=== PATIENT | female | born 1940 | race Caucasian/White ===

== ENCOUNTER 2017-08-23 09:34 | Outpatient (CLI) | payer MEDICARE, BC | END 2017-08-23 09:35 | disposition home or self-care (01) | LOC: CTENTCT 09:34 | PROVIDERS: ATTEND Otolaryngology Plastic Surgery within the Head & Neck | DX: J32.9 Chronic sinusitis, unspecified (principal) | CPT/HCPCS: 70486 ==

== ENCOUNTER 2017-09-01 08:50 | Day surgery (SDC) | payer MEDICARE, BC ==
[2017-08-31 14:12] VITALS: BMI 27.4
[2017-09-01] MEDS ORDERED: Oxymetazoline HCl 0.05% ( 15 ML ) ONE ×2 (09:32→11:06)
[2017-09-01 10:09] LABS: Hematocrit 43.6 % (36.0-47.0)
[2017-09-01 10:28] LABS: Anion Gap 14 mmol/L (10-20); BUN (Urea Nitrogen) 14 mg/dL (9.8-20.1); Calc. Creatinine Clearance 79 mL/min (70-130); Calcium 10.3 mg/dL (7.8-10.44); Carbon Dioxide 26 mmol/L (23-31); Chloride 106 mmol/L (98-107); Estimated GFR-MDRD 80
[2017-09-01] MEDS ORDERED: Fentanyl 100 MCG/2 ML VIAL ONE (11:05)
[2017-09-01] MEDS ORDERED: Glycopyrrolate 0.2 MG/ML 5 ML SYRINGE ONE (11:26)
[2017-09-01] MEDS ORDERED: Lidocaine 2% PF 10 ML AMP (For Epidural Use) ONE (11:26)
[2017-09-01] MEDS ORDERED: Dexamethasone 20 MG/5 ML VIAL ONE (11:26)
[2017-09-01] MEDS ORDERED: PHENYLEPHRINE-NS 100 MCG/ML 10 ML SYRINGE ONE (11:26)
[2017-09-01] MEDS ORDERED: Ondansetron HCl/PF 4 MG/2 ML Vial ONE (11:26)
[2017-09-01] MEDS ORDERED: Propofol 200 MG/20 ML VIAL ONE (11:26)
[2017-09-01] MEDS ORDERED: Promethazine HCl 25 MG/ML VIAL ONE (13:15)
[2017-09-01] MEDS ORDERED: Morphine 2 MG/ML SYRINGE ONE (13:16)
--- NOTE | 2017-09-02 09:08 | OP ---
DATE OF PROCEDURE: 09/01/2017 PREOPERATIVE DIAGNOSES: 1. Allergic fungal sinusitis. 2. Chronic rhinosinusitis. 3. Left middle turbinate nedra bullosa. 4. Bilateral inferior turbinate hypertrophy. POSTOPERATIVE DIAGNOSES: 1. Allergic fungal sinusitis. 2. Chronic rhinosinusitis. 3. Left middle turbinate nedra bullosa. 4. Bilateral inferior turbinate hypertrophy. PROCEDURES: 1. Bilateral endoscopic sinus surgery, total ethmoidectomies. 2. Bilateral endoscopic sinus surgery, maxillary antrostomies. 3. Endoscopic resection of left middle turbinate nedra bullosa. 4. Bilateral inferior turbinate submucosal resection. SURGEON: Dr. Mandeep Bacon. ESTIMATED BLOOD LOSS: 50 mL COMPLICATIONS: None. ANESTHESIA: GETA. PROCEDURE: The patient was taken to the operating room and placed supine on the table. General end otracheal anesthesia was obtained by the Anesthesia staff. Tube was secured in the left lower lip. The patient was placed in the beach chair position and was prepped and draped for standard nasal pr ocedure. Following this, 1% lidocaine with 1:100,000 epinephrine was injected into the nasal cavity in the inferior turbinates, middle turbinates, lateral nasal wall and the 0 degree endoscope was us ed to assist with the procedure. The Alkol elevator was used to medially fracture the middle turbin ates bilaterally. Following this, the uncinate process was identified and was anteriorly fractured using the ball-ended probe. The uncinate process was then removed using a microdebrider and upbitin g Blakesley forceps. On the left side, a large nedra bullosa of the left middle turbinate was then incised vertically with a sickle knife. The lateral portion of the nedra bullosa was then removed using a straight Blakesley forceps. Following this, the natural maxillary ostia was gently palpate d and identified with a ball-ended probe and then widened using the microdebrider and straight Brady sley forceps. On this right side, copious amounts of nasal polyps and allergic fungal debris were r emoved from the right maxillary sinus. This infected area was then extended into the ethmoidal bull a on this right side. The ethmoidal bulla was identified and was punctured on its medial and inferi or aspect bilaterally and was removed using the microdebrider. Following this, the grand lamella wa s identified bilaterally and was punctured into the posterior ethmoidal cells. Working from posteri or to anterior, the ethmoidal cells were opened in a mucosal-sparing technique bilaterally. Followi ng this, the inferior turbinates were then punctured on the anterior and inferior aspect and submuco stephanie resection of the inferior turbinates was performed. Nasal cavity was then irrigated. MeroPacks were placed. The patient tolerated the procedure well.
--- NOTE | 2017-09-03 15:58 | EKG ---
Test Reason : PREOP Blood Pressure : / mmHG Vent. Rate : 059 BPM Atrial Rate : 059 BPM P-R Int : 216 ms QRS Dur : 086 ms QT Int : 406 ms P-R-T Axes : 056 007 030 degrees QTc Int : 401 ms Sinus bradycardia with 1st degree A-V block Otherwise normal ECG No previous ECGs available Confirmed by DR. Fab ALMARAZ ([id number]) on 09/03/2017 3:58:19 PM Referred By: PEREZ Confirmed By:DR. Fab ALMARAZ
== END 2017-09-01 14:05 | disposition home or self-care (01) ==
LOC: SDC 08:50
PROVIDERS: ATTEND Otolaryngology Plastic Surgery within the Head & Neck
PROC: 099R8ZZ Drainage of Left Maxillary Sinus, Via Natural or Artificial Opening Endoscopic (ICD-10-PCS; principal; 2017-09-01)
PROC: 099Q8ZZ Drainage of Right Maxillary Sinus, Via Natural or Artificial Opening Endoscopic (ICD-10-PCS; 2017-09-01)
PROC: 09TL8ZZ Resection of Nasal Turbinate, Via Natural or Artificial Opening Endoscopic (ICD-10-PCS; 2017-09-01)
PROC: 09TL7ZZ Resection of Nasal Turbinate, Via Natural or Artificial Opening (ICD-10-PCS; 2017-09-01)
DX: J32.9 Chronic sinusitis, unspecified (principal); J30.89 Other allergic rhinitis; J34.9 Unspecified disorder of nose and nasal sinuses; J34.3 Hypertrophy of nasal turbinates; I10 Essential (primary) hypertension; E78.00 Pure hypercholesterolemia, unspecified; E89.0 Postprocedural hypothyroidism; Z79.82 Long term (current) use of aspirin; Z79.899 Other long term (current) drug therapy; Z88.2 Allergy status to sulfonamides; Z96.1 Presence of intraocular lens; Z98.890 Other specified postprocedural states; Z87.891 Personal history of nicotine dependence; Z87.81 Personal history of (healed) traumatic fracture
CPT/HCPCS: 80048; 85014; 85018; 87070; 87102; 87205; 87206; 93005; 93010; 96374; 96375; J1100; J2001; J2270; J2405; J2550; J2704; J3010

== ENCOUNTER 2018-02-15 21:12 | Emergency (ER) | payer MEDICARE, BC ==
[2018-02-16] MEDS ORDERED: Ketorolac Tromethamine 30 MG/ML VIAL ONE (00:09)
[2018-02-16] MEDS ORDERED: Water For Inject, Bacteriostat 30 ML ONE (00:09)
[2018-02-16] MEDS ORDERED: methylPREDNISolone Sod Succ/PF 125 MG/2 ML VIAL ONE (00:09)
== END 2018-02-16 00:35 | disposition home or self-care (01) ==
LOC: ERS 21:12
DX: S39.012A Strain of muscle, fascia and tendon of lower back, initial encounter (principal); E03.9 Hypothyroidism, unspecified; I10 Essential (primary) hypertension; Z79.899 Other long term (current) drug therapy; X58.XXXA Exposure to other specified factors, initial encounter
CPT/HCPCS: 96372; J1885; J2930

== ENCOUNTER 2019-02-04 16:22 | Inpatient (IN) | payer MEDICARE, BC ==
[2019-02-04] MEDS ORDERED: Morphine 4 MG/ML VIAL ONE ×2 (17:13→19:21)
--- NOTE | 2019-02-04 17:46 | RAD ---
FXR Hip Lt 2-3 View: 02/04/2019 5:10 PM CLINICAL INDICATION: Injury, pain COMPARISON: None. FINDINGS: Fracture:Subcapital proximal left femoral fracture with shortening of the femoral neck and associated angulation Arthropathy:Mild arthropathy. Incidental findings:Calcific density overlies the left hemipelvis IMPRESSION: 1. Subcapital, impacted and angulated proximal left femoral fracture. Orthopedic consultation is brandi mmended.
--- NOTE | 2019-02-04 17:47 | RAD ---
FXR Pelvis AP STANDARD: 02/04/2019 5:10 PM CLINICAL INDICATION: Fall with pain and injury COMPARISON: None. FINDINGS: Fracture:Subcapital fracture of proximal left femur is present Arthropathy:Mild arthropathy. Incidental findings:Calcifications overlie the pelvis IMPRESSION: 1. Subcapital, proximal left femoral fracture.
--- NOTE | 2019-02-04 17:48 | RAD ---
FXR Knee Lt 3 View: 02/04/2019 5:10 PM CLINICAL INDICATION: Injury, pain COMPARISON: None. FINDINGS: Fracture:No fracture. Arthropathy:Mild arthropathy. Incidental findings:None of significance. Lateral view is rotated, limiting assessment. IMPRESSION: 1. No acute osseous abnormality.
--- NOTE | 2019-02-04 17:50 | RAD ---
FXR Femur Lt 2 View STANDARD: 02/04/2019 5:09 PM CLINICAL INDICATION: Injury, pain COMPARISON: None. FINDINGS: Fracture:Subcapital, proximal left femoral fracture is present Arthropathy:Mild arthropathy. Incidental findings:None of significance. IMPRESSION: 1. Subcapital fracture of the proximal left femur.
[2019-02-04 18:13] LABS: #Basophils 0.1 thou/uL (0.0-0.2); #Eosinphils 0.3 thou/uL (0.0-0.7); #Lymphocytes 1.3 thou/uL (1.20-3.40); #Monocytes 0.6 thou/uL (0.11-0.59); #Neutrophils 8.6 thou/uL (1.40-6.50); %Basophils 0.7 % (0.0-1.0); %Eosinophils 3.1 % (0.0-10.0); %Lymphocytes 11.8 % (21.0-51.0); %Monocytes 5.6 % (0.0-10.0); %Neutrophils 78.7 % (42.0-75.0); Mean Corpuscular Hemoglobin 30.5 pg (27.0-31.0); Mean Corpuscular Volume 92.6 fL (78.0-98.0); Platelet Count 211 thou/uL (130-400); RBC Distribution Width 12.5 % (11.5-14.5); Red Blood Cell (RBC) Count 4.57 mill/uL (4.20-5.40); White Blood Cell (WBC) Count 10.9 thou/uL (4.8-10.8)
[2019-02-04 18:20] LABS: Prothrombin Time 13.1 SEC (12.0-14.7)
[2019-02-04 18:21] LABS: PTT 30.4 SEC (22.9-36.1)
[2019-02-04 18:44] LABS: ALT (SGPT) 12 U/L (8-55); AST (SGOT) 16 U/L (5-34); Albumin 3.9 g/dL (3.4-4.8); Alkaline Phosphatase 101 U/L (40-150); Anion Gap 10 mmol/L (10-20); BUN (Urea Nitrogen) 19 mg/dL (9.8-20.1); Bilirubin, Total 0.5 mg/dL (0.2-1.2); Calc. Creatinine Clearance 0 mL/min (70-130); Calcium 10.3 mg/dL (7.8-10.44); Carbon Dioxide 27 mmol/L (23-31); Chloride 106 mmol/L (98-107); Estimated GFR-MDRD 73; Globulin 2.4 g/dL (2.4-3.5); Glucose 126 mg/dL (83-110); Potassium 4.2 mmol/L (3.5-5.1); Protein, Total 6.3 g/dL (6.0-8.3); Sodium 139 mmol/L (136-145)
--- NOTE | 2019-02-04 20:25 | HP ---
CONSULTATION: Orthopedics, Dr. Winkler. HISTORY OF PRESENT ILLNESS: The patient is a 78-year-old woman, who was at home when she slipped on a rug and landed on her garage floor. She denied any loss of consciousness, though she did hit her head on the back of the floor. She had immediate pain to her left hip area. She was brought to the emergency department, underwent evaluation and examination, was noted to have a left femoral neck fracture. At which time, we were asked to evaluate the patient for admission and obtain Orthopedic consultation. ALLERGIES: SULFA. CURRENT MEDICATIONS: 1. Tolterodine. 2. Lisinopril. 3. Hydralazine. 4. Pravastatin. 5. Synthroid. 6. Propranolol. 7. Potassium. PAST MEDICAL HISTORY: 1. Hypothyroidism. 2. Hyperlipidemia. 3. Hypertension. PAST SURGICAL HISTORY: 1. Thyroidectomy. 2. Dental implants. 3. Left elbow irrigation and debridement. 4. Bilateral breast biopsies. 5. Tonsillectomy. SOCIAL HISTORY: The patient denies drug, tobacco, or alcohol use. Lives independently at home alone. REVIEW OF SYSTEMS: A 10-point review of systems is negative as otherwise stated. PHYSICAL EXAMINATION: VITAL SIGNS: Blood pressure 166/75, heart rate 78, respirations 18, oxygen saturation is 98% on room air, and temperature is 98.5. GENERAL: The patient is resting comfortably in bed. She is awake, alert, and oriented x3. [place] Coma Scale is 15. HEENT: Head is normocephalic. There is a small contusion in the occiput of her scalp, but otherwise unremarkable. Eyes; extraocular motion intact. PERRLA bilaterally. Ears are atraumatic without discharge. Nose, atraumatic without discharge. Oropharynx is clear. NECK: Nontender. Trachea is midline. No JVD. CHEST: Clear to auscultation with good inspiratory and expiratory effort. HEART: Regular rate and rhythm. ABDOMEN: Soft, flat, nontender with active bowel sounds. Pelvis is stable with tenderness to the left hip consistent with her fracture. EXTREMITIES: Neurovascularly intact x4. BACK: Atraumatic and nontender. LABORATORY FINDINGS: White blood cell count 10.9, hemoglobin 14.0, hematocrit 42.3, platelets 211. Sodium 139, potassium 4.2, chloride 106, CO2 of 27, BUN 19, creatinine 0.76, glucose 126. LFTs are unremarkable. PT 13, INR 1.0, PTT 31. RADIOGRAPHIC REPORTS: AP pelvis shows subcapital proximal left femoral fracture ; left hip shows a subcapital, impacted and angulated proximal left femur fracture ; left femur again shows the subcapital proximal femur fracture; left knee shows no acute osseous abnormality. ASSESSMENT AND PLAN: 1. Status post ground level fall. 2. Scalp contusion. 3. Left subcapital proximal femur fracture. 4. Acute pain secondary to above. 5. History of hypertension. 6. History of hypothyroidism. 7. History of hyperlipidemia. PLAN: Plan will be to admit the patient to the surgical floor. She will have pain management, pulmonary toilet, gastritis, mechanical VTE prophylaxis. After midnight, we will make the patient n.p.o. Postoperatively, we will plan on giving her diet, p.o. medications for pain. Resume her home medications and begin physical and occupational therapy. The patient was evaluated in the emergency department with Dr. Winkler and he explained the planned surgical procedure. The evaluation, examination, laboratory, and radiographic findings will be discussed with Dr. Nettles after this dictation. Job ID: [id number] MTDD
[2019-02-04] MEDS ORDERED: CEFAZOLIN 2 GM in Premix Bag 1 BAG IVPB SCH (20:30)
[2019-02-04] MEDS ORDERED: Morphine 4 MG/ML VIAL SLOW IVP PRN (21:33)
[2019-02-04] MEDS ORDERED: Dextrose 5% in Water 1,000 ML IV PRN (21:33)
[2019-02-04] MEDS ORDERED: hydrALAZINE 20 MG/ML VIAL SLOW IVP PRN (21:33)
[2019-02-04] MEDS ORDERED: Morphine 2 MG/ML SYRINGE SLOW IVP PRN (21:33)
[2019-02-04] MEDS ORDERED: Ondansetron PF 4 MG/2 ML Vial IVP PRN (21:33)
[2019-02-04] MEDS ORDERED: Ketorolac Tromethamine 30 MG/ML VIAL IVP SCH (21:33)
[2019-02-04] MEDS ORDERED: Ondansetron ODT 4 MG TAB PO PRN (21:33)
[2019-02-04] MEDS ORDERED: Dextrose 50% Abboject 50 ML SYRINGE SLOW IVP PRN (21:33)
--- NOTE | 2019-02-04 21:34 | CON ---
DATE OF CONSULTATION: 02/04/2019 BRIEF HISTORY OF PRESENT ILLNESS: The patient is a pleasant 78-year-old lady, who was examined in the emergency room at [facility] following a ground level fall at home when she slipped on a rug and landed on her left side. She reports immediate left groin pain and inability to ambulate. Upon evaluation in the Emergency Department, she was found to have left groin pain, the leg that was mildly shortened and externally rotated at the hip and x-ray confirming a displaced subcapital femoral neck fracture. As such, the patient now admitted to the Trauma Service and Orthopedic consultation requested. PAST MEDICAL HISTORY: Remarkable for hypertension, hypothyroidism, and hyperlipidemia. PAST SURGICAL HISTORY: Includes breast biopsies, thyroidectomy, tonsillectomy, and left elbow irrigation and debridement. MEDICATIONS: Include; 1. Propranolol. 2. Synthroid. 3. Pravastatin. 4. Hydralazine. 5. Lisinopril. 6. Potassium. ALLERGIES: TO SULFA DRUGS. SOCIAL HISTORY: The patient denies drug, tobacco, or alcohol use. She lives alone in a private residence. FAMILY HISTORY: Noncontributory. REVIEW OF SYSTEMS: The patient denies recent fevers, chills, or sweats. Denies chest pain or shortness of breath. Denies numbness or tingling in the lower extremity. PHYSICAL EXAMINATION: VITAL SIGNS: Temperature 98.5, heart rate of 78, respiratory rate of 18, blood pressure 166/75, and O2 saturations are 98% on room air. GENERAL: The patient is found to be awake, alert, and oriented, found to be a very pleasant and bright, 78-year-old lady. HEENT: Atraumatic and normocephalic, except for very small contusion at her scalp. NECK: Nontender and supple. HEART: Shows a regular rate and rhythm without murmur. LUNGS: Clear to auscultation bilaterally with good breath sounds and no chest pain. ABDOMEN: Flat and nontender. PELVIS: Stable to compression. EXTREMITIES: Remarkable for bilateral upper extremities that are atraumatic. A right lower extremity is also atraumatic. A left lower extremity remarkable for pain in the groin with a leg that is slightly shortened and externally rotated at the hip. The knee ankle and foot appear atraumatic. She is wiggling her toes normally. Thigh and lower leg compartments are soft. LABORATORY DATA: White count of 10.9, hematocrit of 42.3, and 211,000 platelets. INR of 1.0. IMAGING DATA: X-rays, AP pelvis as well as 2-view left hip remarkable for a varus angulated impacted left femoral neck fracture. ASSESSMENT AND PLAN: The patient is a pleasant 78-year-old lady status post ground level fall sustaining a left femoral neck fracture with displacement. This evening, I discussed with the patient treatment options including nonsurgical management, attempted closed reduction and pinning, hemiarthroplasty and total hip arthroplasty. Given the patient's level of activity as well as functional demands, I believe that a hemiarthroplasty will allow her to pursue all of her normal activities of daily living while providing a hip that will hopefully last for the rest of her days. Today, we also briefly discussed risks and benefits for the surgery. Risks include, but are not limited to bleeding, infection, nerve injury, deep venous thrombosis, pulmonary embolism, dislocation, loss of limb or life. The patient appears to understand and does wish to proceed. We will make her n.p.o. after midnight with plans to proceed with a hemiarthroplasty in the morning. Job ID: [id number]
[2019-02-04 21:39] VITALS: BMI 28.8
[2019-02-04] MEDS ORDERED: Famotidine 20 MG TAB PO SCH (21:45)
[2019-02-04] MEDS: Cyclobenzaprine 10 MG TAB PO PRN (21:57)
[2019-02-04] MEDS ORDERED: Sodium Chloride 0.9% 1,000 ML IV SCH (23:55)
[2019-02-05] MEDS: Ketorolac Tromethamine 30 MG/ML VIAL IVP SCH ×4 (00:05→18:17)
[2019-02-05] MEDS: Acetaminophen 1,000 MG in Premix Bag 1 BAG IVPB SCH ×4 (00:06→18:16)
[2019-02-05 05:05] LABS: #Eosinphils 0.4 thou/uL (0.0-0.7); #Lymphocytes 0.9 thou/uL (1.20-3.40); #Monocytes 0.4 thou/uL (0.11-0.59); #Neutrophils 6.9 thou/uL (1.40-6.50); %Basophils 0.2 % (0.0-1.0); %Eosinophils 4.2 % (0.0-10.0); %Lymphocytes 10.6 % (21.0-51.0); %Monocytes 4.8 % (0.0-10.0); %Neutrophils 80.2 % (42.0-75.0); Mean Corpuscular HGB CONC 33.4 g/dL (32.0-36.0); Mean Platelet Volume 8.4 fL (7.4-10.4); Platelet Count 160 thou/uL (130-400); RBC Distribution Width 12.4 % (11.5-14.5); Red Blood Cell (RBC) Count 4.19 mill/uL (4.20-5.40); White Blood Cell (WBC) Count 8.6 thou/uL (4.8-10.8)
[2019-02-05 05:21] LABS: Anion Gap 10 mmol/L (10-20); BUN (Urea Nitrogen) 19 mg/dL (9.8-20.1); Calc. Creatinine Clearance 75 mL/min (70-130); Calcium 9.5 mg/dL (7.8-10.44); Carbon Dioxide 26 mmol/L (23-31); Chloride 107 mmol/L (98-107); Estimated GFR-MDRD 71; Glucose 110 mg/dL (83-110); Potassium 4.1 mmol/L (3.5-5.1); Sodium 139 mmol/L (136-145)
[2019-02-05] MEDS: Cyclobenzaprine 10 MG TAB PO PRN (06:40)
[2019-02-05] MEDS: Famotidine 20 MG TAB PO SCH ×2 (08:28→20:47)
[2019-02-05] MEDS ORDERED: Propranolol 60 MG TAB PO SCH (09:00)
[2019-02-05] MEDS ORDERED: Morphine 4 MG/ML VIAL ONE (09:41)
[2019-02-05] MEDS ORDERED: Fentanyl 100 MCG/2 ML VIAL ONE (09:56)
[2019-02-05] MEDS ORDERED: Metoclopramide HCl 10 MG/2 ML VIAL ONE (10:04)
[2019-02-05] MEDS ORDERED: Lidocaine 1% PF 5 ML VIAL ONE (10:04)
[2019-02-05] MEDS ORDERED: diphenhydrAMINE 50 MG/ML VIAL ONE (10:04)
[2019-02-05] MEDS ORDERED: PHENYLEPHRINE-NS 100 MCG/ML 10 ML SYRINGE ONE (10:04)
[2019-02-05] MEDS ORDERED: Ondansetron PF 4 MG/2 ML Vial ONE (10:04)
[2019-02-05] MEDS ORDERED: ePHEDrine 50 MG/ML VIAL ONE (10:04)
[2019-02-05] MEDS ORDERED: Glycopyrrolate 0.2 MG/ML 5 ML SYRINGE ONE (10:04)
[2019-02-05] MEDS ORDERED: PROPOFOL 200 MG/20 ML VIAL ONE (10:04)
[2019-02-05] MEDS ORDERED: Rocuronium Bromide 10 MG/ML (10ML VIAL) ONE (10:04)
[2019-02-05] MEDS ORDERED: Dexamethasone 20 MG/5 ML VIAL ONE (10:04)
[2019-02-05] MEDS ORDERED: Morphine Sulfate 2 MG/ML SYRINGE SLOW IVP PRN (12:25)
[2019-02-05] MEDS ORDERED: Meperidine HCl/PF 25 MG/ML VIAL SLOW IVP PRN (12:25)
[2019-02-05] MEDS ORDERED: Promethazine HCl 25 MG/ML VIAL SLOW IVP PRN (12:25)
[2019-02-05] MEDS ORDERED: Ondansetron HCl/PF 4 MG/2 ML Vial IVP PRN (12:25)
[2019-02-05] MEDS ORDERED: Ketorolac Tromethamine 30 MG/ML VIAL IVP PRN (12:25)
[2019-02-05] MEDS ORDERED: Promethazine HCl 25 MG/ML VIAL IM PRN (12:25)
--- NOTE | 2019-02-05 12:30 | OP ---
DATE OF PROCEDURE: 02/05/2019 PREOPERATIVE DIAGNOSIS: Left femoral neck fracture, subcapital. POSTOPERATIVE DIAGNOSIS: Left femoral neck fracture, subcapital. PROCEDURE PERFORMED: Left hip hemiarthroplasty. ANESTHESIA: General. SAIL CUTTER: Loraine Pelletier PA-C ESTIMATED BLOOD LOSS: 250 mL. IMPLANTS: DePuy system was used with a size 4 cemented stem, a 28 x 42 bipolar cup, and a +8.5 femoral head with centralizer for the stem as well as simplex antibiotic cement. COMPLICATIONS: None. DRAINS: None. SPECIMENS: Femoral head discarded. OUTCOME: Stable hemiarthroplasty. INDICATIONS: The patient is a 78-year-old lady, status post ground level fall at home, sustaining a left subcapital femoral neck fracture with displacement. After discussion with the patient including risks and benefits, we decided to proceed with hemiarthroplasty. Risks include, but are not limited to bleeding, infection, nerve injury, DVT, PE, dislocation, periprosthetic fracture, and loss of limb or life. The patient appears to understand and does wish to proceed. Informed consent has been obtained. DESCRIPTION OF PROCEDURE: The patient was brought to the operating room and a time-out performed followed by induction of general anesthesia. Next, the patient was positioned in the right lateral decubitus position with an axillary roll placed. Next, a sterile prep and drape was performed in the left lower extremity. A curvilinear incision was made centered over the greater trochanter. After the skin was sharply incised, dissection was carried down through the subcutaneous fat until the level of the tensor fascia and fascia maribell. This fascia was incised in line with skin incision and reflected anteriorly and posteriorly using a Charnley retractor. The trochanteric bursa was swept off the short external rotators and then an elevator was passed under the abductors to further isolate the short external rotators. The piriformis superior and inferior gemelli and obturator internus were then taken off the posterior aspect of the femur with electrocautery, tagged and reflected posteriorly. Next, a T-capsulotomy was performed and the femoral head removed with a corkscrew device. Next, an oscillating saw was used to make a femoral neck cut. This was followed by further preparation of the femoral canal first using a box chisel, followed by a T-handle awl and lateralizing reamer. Progressive T-handle awls were then passed down the shaft up to a size 5, which gave pretty good fit. Broaching was started at size 2, continued up to size 4 and at size 4, all the cancellous bone from around the calcar had been removed and as such it was opted to stop at a size 4. A trial reduction was performed and a +8.5 head gave good fit and mosque of leg lengths. As such, all trial components were removed from the femur and then the hip irrigated with 3 L of normal saline using Pulsavac. A cement restrictor was placed down the canal and then the canal was dried while cement prepared. The canal was then filled with cement and pressurized, followed by introduction of the femoral stem. Excess cement was removed and then once the cement had fully cured, the bipolar head was attached to the stem and the hip reduced and found to have excellent stability. Wound closure was then performed in layers with #2 Vicryl for the capsule and #2 Vicryl to reattach the short external rotators. A #2 Vicryl was also used for the tensor fascia and fascia maribell followed by 0 Vicryl for the Ana's fascia and 2-0 Vicryl subcutaneously and joao for the skin. A Xeroform gauze and tape dressing was applied to the thigh and then the patient was transferred to recovery room in stable condition. There were no complications. The patient tolerated the procedure well. Job ID: [id number]
--- NOTE | 2019-02-05 12:50 | RAD ---
FRadiograph left hip 2 views: HISTORY: Left hip fracture FINDINGS: Metallic femoral head and neck prosthesis in place with femoral stem that reaches proximal femoral sh aft. Subcutaneous emphysema and overlying skin joao. IMPRESSION: Very recently status post left hip replacement arthroplasty
--- NOTE | 2019-02-05 17:40 | PRG ---
DATE OF SERVICE: 02/05/2019 SUBJECTIVE: The patient is hospital day #2 status post ground level fall when she sustained a left femoral neck fracture. The patient has undergone left hip hemiarthroplasty, which she tolerated well. Overnight, she had no issues. She was made n.p.o. and was able to undergo her procedure this morning. Postoperatively, we will have her work with Physical Therapy and transition all her medications to p.o. and we will also resume her home medications. OBJECTIVE: VITAL SIGNS: Temperature is 99, heart rate 73, blood pressure 123/62, respirations 16, oxygen saturation 94% on room air. GENERAL: The patient is resting comfortably, though still sleepy. HEENT: Unremarkable. LUNGS: Clear to auscultation with good inspiratory and expiratory effort. HEART: Regular rate and rhythm. ABDOMEN: Soft, flat, nontender with active bowel sounds. EXTREMITIES: Neurovascularly intact x4. Postop dressing is clean, dry, and intact. LABORATORY FINDINGS: White blood cell count 8.6, hemoglobin 13.0, hematocrit 38.9, platelets 160. Sodium 139, potassium 4.1, chloride 107, CO2 is 26, BUN 19, creatinine 0.78, glucose 110. There are no radiographs to review this morning. ASSESSMENT: 1. Status post ground level fall. 2. Status post left hip hemiarthroplasty for a left femoral neck fracture. 3. Multiple comorbidities. PLAN: Plan will be to have the patient start working with Physical and Occupational Therapy, pain management, pulmonary toilet, gastritis, mechanical VTE prophylaxis. We will discuss placement with the patient tomorrow, likely inpatient rehab. Job ID: [id number]
[2019-02-05] MEDS: CEFAZOLIN 2 GM in Premix Bag 1 BAG IVPB SCH (18:35)
[2019-02-05] MEDS: Trospium 20 MG TAB PO SCH (23:29)
[2019-02-05] MEDS: hydrALAZINE 10 MG TAB PO SCH (23:29)
[2019-02-06] MEDS: Ketorolac Tromethamine 30 MG/ML VIAL IVP SCH ×2 (00:32→05:30)
[2019-02-06] MEDS: Acetaminophen 1,000 MG in Premix Bag 1 BAG IVPB SCH (00:32)
[2019-02-06] MEDS: CEFAZOLIN 2 GM in Premix Bag 1 BAG IVPB SCH (01:51)
[2019-02-06] MEDS: Levothyroxine Sodium 75 MCG TAB PO SCH (05:30)
[2019-02-06 05:49] LABS: #Eosinphils 0.2 thou/uL (0.0-0.7); #Lymphocytes 0.5 thou/uL (1.20-3.40); #Monocytes 0.6 thou/uL (0.11-0.59); #Neutrophils 9.8 thou/uL (1.40-6.50); %Basophils 0.1 % (0.0-1.0); %Eosinophils 1.4 % (0.0-10.0); %Lymphocytes 4.9 % (21.0-51.0); %Monocytes 5.5 % (0.0-10.0); %Neutrophils 88.2 % (42.0-75.0); Hemoglobin 12.1 g/dL (12.0-16.0); Mean Corpuscular HGB CONC 33.2 g/dL (32.0-36.0); Mean Corpuscular Hemoglobin 30.6 pg (27.0-31.0); Mean Corpuscular Volume 92.3 fL (78.0-98.0); Mean Platelet Volume 9.2 fL (7.4-10.4); Platelet Count 174 thou/uL (130-400); RBC Distribution Width 12.2 % (11.5-14.5); Red Blood Cell (RBC) Count 3.96 mill/uL (4.20-5.40); White Blood Cell (WBC) Count 11.1 thou/uL (4.8-10.8)
--- NOTE | 2019-02-06 07:47 | HP ---
ADDENDUM: This is an addendum to the H and P dictated by Giovanni Richards, Trauma PA. I have discussed the patient's case with him and examined the patient on morning rounds around 10 o'clock while she was in day stay awaiting her surgery. HISTORY OF PRESENT ILLNESS: In short, Ms. Rivero is a 78-year-old woman who tripped on an area rug in her laundry room and fell. She hit the back of her head on the back of the door, but did not lose consciousness. She had immediate pain to her left hip area and was found to have a left femoral neck fracture. She did not sleep well last night, because of pain and spasms in the area. She has also been having trouble emptying her bladder. She had just used a bedpan before I came in to see her and already felt that she needed to go again. PAST MEDICAL HISTORY: Hypothyroidism, hyperlipidemia and hypertension. She is quite active and independent and lives at home and was actually on her way to a concert by the [employer] when she had her injury. OUTPATIENT MEDICATIONS: Include: 1. Tolterodine. 2. Lisinopril. 3. Hydralazine. 4. Pravastatin. 5. Synthroid. 6. Propranolol. 7. Potassium. ALLERGY: She reports an allergy to sulfa medication. PAST SURGICAL HISTORY: Thyroidectomy, dental surgery, I and D of left elbow, breast biopsies and tonsillectomy. SOCIAL HISTORY: She does not smoke, drink, or drink or use illicit drugs. REVIEW OF SYSTEMS: A 10 system review of systems is negative except per HPI. PHYSICAL EXAMINATION: VITAL SIGNS: Temperature 99, heart rate 73, respirations 16, 94% saturated on room air, blood pressure 123/62. GENERAL: Reveals an elderly woman, in no acute distress. She is not flushed or toxic. She is not jaundiced or icteric. HEENT: Unremarkable. NECK: Supple with no midline tenderness. No hematoma or open wounds of the scalp. HEART: Regular in its rate and rhythm without murmurs, rubs, or gallops. LUNGS: Clear to auscultation bilaterally. She has some discomfort in the suprapubic area, but is otherwise nontender to palpation of the abdomen. MUSCULOSKELETAL: She is having spasms and tenderness in her left hip and thigh extending down to the knee. No other tenderness or deformity of the extremity. NEUROLOGIC: Intact. PSYCHIATRIC: Alert, oriented and appropriate. IMAGING: Images are reviewed. The patient has a subcapital fracture of the proximal left femur, knee x-ray and pelvis x-ray did not show any other injuries. Ultrasound was performed at bedside and the patient's bladder was distended despite having just voided with a calculated volume of about 650 mL. ASSESSMENT: 1. Subcapital fracture of the proximal left femur. 2. Urinary retention likely related to immobility and pain medication. The patient was about to go back to the operating room when I saw her. I did ask her OR nurse to place a Aranda catheter and leave it in postoperatively until her mobility and pain control is improved. She is stable for OR and will require physical therapy postoperatively to return to the prehospitalization level of function. Job ID: [id number]
[2019-02-06] MEDS ORDERED: Non-Formulary Item 1 EACH (Potassium [Potassium] 99 MG) PO SCH (09:00)
[2019-02-06] MEDS: Atorvastatin Calcium 10 MG TAB PO SCH (09:03)
[2019-02-06] MEDS: Trospium 20 MG TAB PO SCH ×2 (09:03→21:09)
[2019-02-06] MEDS: Famotidine 20 MG TAB PO SCH ×2 (09:03→21:08)
[2019-02-06] MEDS: hydrALAZINE 10 MG TAB PO SCH ×2 (09:05→21:09)
[2019-02-06] MEDS: Lisinopril 20 MG TAB PO SCH (09:06)
[2019-02-06] MEDS: Propranolol HCl LA 60 MG CAP PO SCH (09:08)
[2019-02-06] MEDS: Aspirin 81 mg Enteric Coated Tablet PO SCH ×2 (10:12→21:08)
[2019-02-06] MEDS: Cyclobenzaprine 10 MG TAB PO PRN ×2 (12:35→22:29)
[2019-02-06] MEDS: Acetaminophen 500 MG TAB PO SCH ×3 (12:35→23:40)
[2019-02-06] MEDS ORDERED: Ketorolac Tromethamine 30 MG/ML VIAL IVP SCH (13:30)
[2019-02-06] MEDS: Ibuprofen 200 MG TAB PO SCH ×2 (16:00→21:08)
--- NOTE | 2019-02-06 16:10 | PRG ---
DATE OF SERVICE: 02/06/2019 SUBJECTIVE: This patient is hospital day 3, postop day 1, status post ground level fall where she sustained a left femoral neck fracture. No acute events reported overnight. Pain well controlled. Tolerating p.o. well. Home medications have been resumed. OBJECTIVE: VITAL SIGNS: Blood pressure 114/69, temp 98.2, pulse 71, respiratory rate 16, oxygen saturation 94% on room air. GENERAL: The patient is resting comfortably in bed, in no acute distress. HEENT: NC/AT. LUNGS: Normal respiratory effort. Even inspiratory and expiratory rate. CHEST/ABDOMEN: No bony abnormality. Soft, flat, nondistended. EXTREMITIES: Neurovascularly intact x4, but no edema noted. Postop dressing clean, dry, and intact. LABORATORY/IMAGING FINDINGS: White blood cell count 11.1, hemoglobin 12.1. No imaging done today. ASSESSMENT: 1. Status post ground level fall. 2. Status post left hemiarthroplasty for left femoral neck fracture. PLAN: The patient to continue to work with Physical and Occupational Therapy. Pain well controlled. Continue current regimen. Mechanical VTE prophylaxis. The patient has been screened by inpatient rehab. The patient selects [facility] for halfway, referral placed, awaiting placement. The patient was seen and evaluated on rounds with Dr. Junior Holt Job ID: [id number] [facility]
[2019-02-06] MEDS: traMADol HCl 50 MG TAB PO PRN (23:40)
[2019-02-07] MEDS ORDERED: Cyclobenzaprine 10 MG TAB PO SCH (01:00)
[2019-02-07] MEDS ORDERED: traMADol HCl 50 MG TAB PO PRN (01:05)
[2019-02-07] MEDS: traMADol HCl 50 MG TAB PO PRN (01:07)
[2019-02-07] MEDS ORDERED: Cyclobenzaprine 10 MG TAB PO PRN (01:15)
[2019-02-07] MEDS: Acetaminophen 500 MG TAB PO SCH ×2 (06:29→12:29)
[2019-02-07] MEDS: Levothyroxine Sodium 75 MCG TAB PO SCH (06:29)
[2019-02-07] MEDS ORDERED: tiZANidine HCl 4 MG TAB PO PRN (08:47)
[2019-02-07] MEDS: Ibuprofen 200 MG TAB PO SCH ×2 (09:09→16:23)
[2019-02-07] MEDS: Atorvastatin Calcium 10 MG TAB PO SCH (09:10)
[2019-02-07] MEDS: Famotidine 20 MG TAB PO SCH (09:10)
[2019-02-07] MEDS: Aspirin 81 mg Enteric Coated Tablet PO SCH (09:10)
[2019-02-07] MEDS: hydrALAZINE 10 MG TAB PO SCH (12:28)
[2019-02-07] MEDS: Lisinopril 20 MG TAB PO SCH (12:28)
[2019-02-07] MEDS: Propranolol HCl LA 60 MG CAP PO SCH (12:29)
[2019-02-07] MEDS: Trospium 20 MG TAB PO SCH (12:29)
[2019-02-07 16:19] VITALS: BP 125/85; TEMP 97.9
--- NOTE | 2019-02-08 03:22 | DIS ---
DATE OF ADMISSION: 02/04/2019 DATE OF DISCHARGE: 02/07/2019 CONSULTS: Dr. Camden Winkler, Orthopedic Surgery. IMAGING: Femur x-ray significant for subcapital fracture of the proximal left femur. Pelvic x-ray, subcapital impacted angulated proximal left femoral fracture. Orthopedic consultation recommended. Knee x-ray significant for no acute osseous abnormality. DISCHARGE MEDICATIONS: 1. Potassium 99 mg p.o. daily. 2. Hydralazine 10 mg p.o. b.i.d. 3. Pravastatin 40 mg p.o. q.a.m. 4. Lisinopril 20 mg p.o. daily. 5. Propranolol 120 mg p.o. q.a.m. 6. Synthroid 75 mcg p.o. q.a.m. 7. Detrol 4 mg p.o. daily. 8. Ibuprofen 400 mg p.o. t.i.d. 9. Tramadol 50 mg p.o. q.6 hours p.r.n. PRIMARY DIAGNOSES: 1. Status post ground level fall. 2. Status post left hemiarthroplasty for left femoral neck fracture. HISTORY OF PRESENT ILLNESS/HOSPITAL COURSE: The patient is a 78-year-old woman who was at home when she slipped on a rug and landed on ground floor. At that time, she denied any loss of consciousness, but did note that she hit her head on the back of the floor. Reported immediate pain in the left hip area, brought to the ER where she was determined to have a fracture of her left hip. At that time, Trauma and Orthopedic Surgery were consulted and it was determined by Orthopedic Surgery that the patient would undergo a left hip hemiarthroplasty that was performed on 02/05/2019. The patient tolerated the procedure well and transferred back to telemetry medical floor. PT, OT, inpatient rehab were consulted to evaluate and treat the patient. Vital signs remained stable. Tolerated p.o., ambulation, and had bowel movements. It was determined that the patient would benefit from inpatient rehab. Pain is well controlled and the patient was discharged in stable condition to inpatient rehab. DISCHARGE INSTRUCTIONS: 1. Location, inpatient rehab with PT and OT. 2. Follow up with Dr. Camden Winkler in 4-6 weeks. 3. Diet, no restrictions. 4. Activity, as tolerated with therapy. Job ID: [id number]
== END 2019-02-07 16:30 | DRG 470 ==
LOC: ERS 16:22 → SURG A 21:11
PROVIDERS: ADMIT Surgery; ATTEND Surgery
PROC: 0SRS0J9 Replacement of Left Hip Joint, Femoral Surface with Synthetic Substitute, Cemented, Open Approach (ICD-10-PCS; principal; 2019-02-05)
PROC: 0T9B70Z Drainage of Bladder with Drainage Device, Via Natural or Artificial Opening (ICD-10-PCS; 2019-02-06)
DX: S72.012A Unspecified intracapsular fracture of left femur, initial encounter for closed fracture (principal); S00.03XA Contusion of scalp, initial encounter; E03.9 Hypothyroidism, unspecified; E78.5 Hyperlipidemia, unspecified; I10 Essential (primary) hypertension; R33.9 Retention of urine, unspecified; Z90.89 Acquired absence of other organs; Z98.890 Other specified postprocedural states; Z88.2 Allergy status to sulfonamides; W01.10XA Fall on same level from slipping, tripping and stumbling with subsequent striking against unspecified object, initial encounter; Y92.009 Unspecified place in unspecified non-institutional (private) residence as the place of occurrence of the external cause
CPT/HCPCS: 36415; 72170; 80048; 80053; 85025; 85610; 85730; 86850; 86900; 86901; 93005; 96374; 96376; C1713; C1781; G0390; J0131; J1100; J1200; J1885; J2001; J2270; J2405; J2704; J2765; J3010; J3490

== ENCOUNTER 2019-03-10 01:40 | Emergency (ER) | payer MEDICARE, BC ==
[2019-03-10 02:26] LABS: #Eosinphils 0.5 thou/uL (0.0-0.7); #Lymphocytes 1.7 thou/uL (1.20-3.40); #Monocytes 1.1 thou/uL (0.11-0.59); #Neutrophils 6.2 thou/uL (1.40-6.50); %Basophils 0.4 % (0.0-1.0); %Eosinophils 5.3 % (0.0-10.0); %Lymphocytes 17.5 % (21.0-51.0); %Neutrophils 64.8 % (42.0-75.0); Hemoglobin 11.3 g/dL (12.0-16.0); Mean Corpuscular HGB CONC 32.1 g/dL (32.0-36.0); Mean Corpuscular Hemoglobin 30.1 pg (27.0-31.0); Mean Corpuscular Volume 93.7 fL (78.0-98.0); Mean Platelet Volume 9.4 fL (7.4-10.4); Platelet Count 129 thou/uL (130-400); RBC Distribution Width 12.4 % (11.5-14.5); Red Blood Cell (RBC) Count 3.75 mill/uL (4.20-5.40); White Blood Cell (WBC) Count 9.5 thou/uL (4.8-10.8)
[2019-03-10 02:46] LABS: ALT (SGPT) Less than 7 U/L (8-55); AST (SGOT) 10 U/L (5-34); Albumin 3.3 g/dL (3.4-4.8); Alkaline Phosphatase 77 U/L (40-150); Anion Gap 12 mmol/L (10-20); BUN (Urea Nitrogen) 26 mg/dL (9.8-20.1); Bilirubin, Total 0.5 mg/dL (0.2-1.2); Calc. Creatinine Clearance 0 mL/min (70-130); Calcium 9.6 mg/dL (7.8-10.44); Carbon Dioxide 22 mmol/L (23-31); Chloride 102 mmol/L (98-107); Estimated GFR-MDRD 41; Globulin 2.3 g/dL (2.4-3.5); Glucose 125 mg/dL (83-110); Potassium 3.9 mmol/L (3.5-5.1); Protein, Total 5.6 g/dL (6.0-8.3); Sodium 132 mmol/L (136-145)
--- NOTE | 2019-03-10 06:33 | RAD ---
CHEST ONE VIEW: INDICATIONS: History of hypotension. COMPARISON: None. FINDINGS: The lungs are clear. The heart size is normal. No acute osseous abnormality is evident. IMPRESSION: No acute cardiopulmonary abnormality. POS: BH
== END 2019-03-10 05:08 | disposition home or self-care (01) ==
LOC: ERS 01:40
DX: E86.0 Dehydration (principal); E78.5 Hyperlipidemia, unspecified; E03.9 Hypothyroidism, unspecified; I10 Essential (primary) hypertension; Z79.899 Other long term (current) drug therapy
CPT/HCPCS: 36415; 71045; 80053; 84484; 85025; 85379; 93005; 96360; 96361

== ENCOUNTER 2021-03-14 09:15 | Outpatient (CLI) | payer MEDICARE, BC | END 2021-03-14 09:16 | disposition home or self-care (01) | LOC: BICMAMMO 09:15 | PROVIDERS: ATTEND Internal Medicine | DX: Z12.31 Encounter for screening mammogram for malignant neoplasm of breast (principal) | CPT/HCPCS: 77063; 77067 ==

== ENCOUNTER 2022-04-20 12:39 | Outpatient (CLI) | payer MEDICARE, BC | END 2022-04-20 12:40 | disposition home or self-care (01) | LOC: BICMAMMO 12:39 | PROVIDERS: ATTEND Internal Medicine | DX: Z12.31 Encounter for screening mammogram for malignant neoplasm of breast (principal); Z91.89 Other specified personal risk factors, not elsewhere classified; Z80.3 Family history of malignant neoplasm of breast | CPT/HCPCS: 77063; 77067 ==

== ENCOUNTER 2022-08-22 16:47 | Emergency (ER) | payer MEDICARE, BC | END 2022-08-22 18:40 | disposition home or self-care (01) | LOC: ERS 16:47 | DX: M25.552 Pain in left hip (principal); E78.00 Pure hypercholesterolemia, unspecified; E03.9 Hypothyroidism, unspecified; I10 Essential (primary) hypertension; Z79.899 Other long term (current) drug therapy | CPT/HCPCS: 72170 ==

== ENCOUNTER 2022-09-20 13:51 | Emergency (ER) | payer MEDICARE, BC ==
[2022-09-20] MEDS ORDERED: Ibuprofen 200 MG TAB ONE (15:18)
== END 2022-09-20 15:30 | disposition home or self-care (01) ==
LOC: ERS 13:51
DX: S50.02XA Contusion of left elbow, initial encounter (principal); E78.00 Pure hypercholesterolemia, unspecified; I10 Essential (primary) hypertension; E03.9 Hypothyroidism, unspecified; W19.XXXA Unspecified fall, initial encounter; Z79.899 Other long term (current) drug therapy

== ENCOUNTER 2023-06-04 07:53 | Outpatient (CLI) | payer MEDICARE, BC | END 2023-06-04 07:54 | disposition home or self-care (01) | LOC: BICMAMMO 07:53 | PROVIDERS: ATTEND Internal Medicine | DX: Z12.31 Encounter for screening mammogram for malignant neoplasm of breast (principal); N63.41 Unspecified lump in right breast, subareolar; Z80.3 Family history of malignant neoplasm of breast; Z91.89 Other specified personal risk factors, not elsewhere classified | CPT/HCPCS: 77063; 77067 ==

== ENCOUNTER 2023-06-11 14:53 | Outpatient (CLI) | payer MEDICARE, BC | END 2023-06-11 14:54 | disposition home or self-care (01) | LOC: BICMAMMO 14:53 | PROVIDERS: ATTEND Internal Medicine | DX: N63.0 Unspecified lump in unspecified breast (principal) | CPT/HCPCS: 76642; 77065; G0279 ==

== ENCOUNTER → 2023-06-18 | Day surgery (SDC) | payer MEDICARE, BC | LOC: BICULT 12:14 | PROVIDERS: ATTEND Internal Medicine | PROC: 0H9T3ZX Drainage of Right Breast, Percutaneous Approach, Diagnostic (ICD-10-PCS; principal; 2023-06-18) | DX: D24.1 Benign neoplasm of right breast (principal); N62 Hypertrophy of breast; N64.89 Other specified disorders of breast; R92.8 Other abnormal and inconclusive findings on diagnostic imaging of breast | CPT/HCPCS: 19083; 88305 ==

== ENCOUNTER 2023-10-28 13:40 | Emergency (ER) | payer MEDICARE, BC ==
[2023-10-28] MEDS ORDERED: Acetaminophen 500 MG TAB ONE (14:12)
[2023-10-28 15:00] LABS: Bilirubin Negative (Negative); Blood, Urine Trace (Negative); CAUTI Indications for Culture Dysuria,urgency,freq; Clarity Turbid (Clear); Glucose, Urine (Dipstick) Normal (Negative); Ketone, Urine Negative (Negative); Leukocyte 500 Leu/uL (Negative); Nitrite Negative (Negative); Protein, Urine (Dipstick) 10 mg/dL (Neg-Trace); Specific Gravity, Urine 1.007 (1.002-1.036); Squamous Epithelial 0-3 HPF (0-3); Urobilinogen Normal mg/dL (Less than 2); WBC/HPF Greater than 50 HPF (0-3); pH, Urine 7.5 (5.0-9.0)
[2023-10-28 15:08] LABS: Bacteria/HPF 1+ HPF (None Seen); Urine Culture Reflex Yes Yes
== END 2023-10-28 17:20 | disposition home or self-care (01) ==
LOC: ERS 13:40
DX: S52.572A Other intraarticular fracture of lower end of left radius, initial encounter for closed fracture (principal); S52.602A Unspecified fracture of lower end of left ulna, initial encounter for closed fracture; I10 Essential (primary) hypertension; E03.9 Hypothyroidism, unspecified; E78.00 Pure hypercholesterolemia, unspecified; Z79.899 Other long term (current) drug therapy; W19.XXXA Unspecified fall, initial encounter
CPT/HCPCS: 29125; 70450; 72125; 81001; 87086

== ENCOUNTER 2023-11-04 15:16 | Emergency (ER) | payer BC, MEDICARE | END 2023-11-04 16:54 | disposition home or self-care (01) | LOC: ERS 15:16 | DX: S52.502A Unspecified fracture of the lower end of left radius, initial encounter for closed fracture (principal); S52.202A Unspecified fracture of shaft of left ulna, initial encounter for closed fracture; E78.00 Pure hypercholesterolemia, unspecified; I10 Essential (primary) hypertension; E03.9 Hypothyroidism, unspecified; X58.XXXA Exposure to other specified factors, initial encounter; Z79.899 Other long term (current) drug therapy ==

== ENCOUNTER 2023-11-11 10:12 | Day surgery (SDC) | payer MEDICARE ==
[2023-11-10 11:24] VITALS: BMI 23.3
[2023-11-11] MEDS ORDERED: fentaNYL 50 mcg/mL 1 mL Vial ONE ×3 (12:08→14:57)
[2023-11-11] MEDS ORDERED: Bupivacaine PF 0.5% 30 ML VIAL ONE ×2 (12:08→12:51)
[2023-11-11] MEDS ORDERED: CEFAZOLIN 2 GM VIAL ONE (12:34)
[2023-11-11] MEDS ORDERED: Vasopressin 20 UNITS/ML VIAL ONE (12:44)
[2023-11-11] MEDS ORDERED: SUGAMMADEX SODIUM 200 MG/2 ML VIAL ONE (12:44)
[2023-11-11] MEDS ORDERED: Fentanyl 250 MCG/5 ML VIAL ONE (12:49)
[2023-11-11] MEDS ORDERED: Midazolam HCl 2 mg/2 ml Vial ONE (12:49)
[2023-11-11] MEDS ORDERED: Rocuronium Bromide 10 MG/ML (10ML VIAL) ONE (12:49)
[2023-11-11] MEDS ORDERED: Lidocaine 2% PF 5 ML VIAL ONE (12:49)
[2023-11-11] MEDS ORDERED: PROPOFOL 20 ML ONE (12:49)
[2023-11-11] MEDS ORDERED: EPINEPHrine 1 MG/ML VIAL ONE (12:51)
[2023-11-11] MEDS ORDERED: ePHEDrine Sulfate 50 MG/10 ML VIAL ONE (13:33)
[2023-11-11] MEDS ORDERED: Dexamethasone 20 MG/5 ML VIAL ONE (13:55)
[2023-11-11] MEDS ORDERED: Ondansetron PF 4 MG/2 ML Vial ONE (13:55)
== END 2023-11-11 17:00 | disposition home or self-care (01) ==
LOC: SDC 10:12
PROVIDERS: ATTEND Orthopaedic Surgery
PROC: 0PSJ04Z Reposition Left Radius with Internal Fixation Device, Open Approach (ICD-10-PCS; principal; 2023-11-11)
DX: S52.572A Other intraarticular fracture of lower end of left radius, initial encounter for closed fracture (principal); S52.615A Nondisplaced fracture of left ulna styloid process, initial encounter for closed fracture; I10 Essential (primary) hypertension; E03.9 Hypothyroidism, unspecified; Z88.2 Allergy status to sulfonamides; Z98.890 Other specified postprocedural states; Z96.652 Presence of left artificial knee joint; Z79.890 Hormone replacement therapy; Z79.899 Other long term (current) drug therapy; X58.XXXA Exposure to other specified factors, initial encounter
CPT/HCPCS: 25608; 73100; 93005; C1713 ×6; J0171; J3010; 93010; J1100; J2001; J2250; J2405; J2704; S0020

== ENCOUNTER 2025-07-03 08:53 | Outpatient (CLI) | payer MEDICARE | END 2025-07-03 08:54 | disposition home or self-care (01) | LOC: BICMAMMO 08:53 | PROVIDERS: ATTEND Internal Medicine | DX: Z12.31 Encounter for screening mammogram for malignant neoplasm of breast (principal); Z80.3 Family history of malignant neoplasm of breast; Z91.89 Other specified personal risk factors, not elsewhere classified | CPT/HCPCS: 77063; 77067 ==